=== PATIENT | male | born 1960 | race Caucasian/White ===

== ENCOUNTER 2023-07-31 21:05 | Emergency (ER) | payer MEDICAID ==
[~2023-07-31] VITALS: Ht 172.7 cm; Wt 72.6 kg
[2023-07-31 21:08] VITALS: BP 139/80; PULSE 80; RESP 16; TEMP 98.1; O2SAT 99
[2023-07-31] MEDS ORDERED: NACL 0.9% 1,000 ML IV ONE (22:35)
[2023-07-31 23:17] LABS: BASOPHILS # (AUTO) 0.1 K/uL (0.00-0.22); BASOPHILS % (AUTO) 1.1 % (0.0-2.0); EOSINOPHILS # (AUTO) 0.2 K/uL (0-0.4); EOSINOPHILS % (AUTO) 2.9 % (0.0-4.0); HEMATOCRIT 46.4 % (36-52); HEMOGLOBIN 15.7 g/dL (12.0-18.0); LYMPHOCYTES # (AUTO) 1.6 K/uL (2.0-11.5); LYMPHOCYTES % (AUTO) 29.6 % (20.5-51.1); MEAN CORPUSCULAR HEMOGLOBIN 29 pg (27-31); MEAN CORPUSCULAR HGB CONC 34 g/dL (33-37); MONOCYTES # (AUTO) 0.3 K/uL (0.8-1.0); MONOCYTES % (AUTO) 6.6 % (1.7-9.3); NEUTROPHILS # (AUTO) 3.2 K/uL (1.8-7.7); NEUTROPHILS % (AUTO) 59.8 % (42.2-75.2); PLATELET COUNT (AUTO) 290 K/uL (140-450); RED BLOOD CELL COUNT(AUTO) 5.52 MIL/uL (4.20-6.10); RED CELL DISTRIBUTION WIDTH 16.2 % (11.6-13.7); WHITE BLOOD COUNT (AUTO) 5.3 K/uL (4.8-10.8)
[2023-07-31 23:36] LABS: ANION GAP 16.4 (8-16); CALCIUM 8.9 mg/dL (8.5-10.1); CARBON DIOXIDE 24.1 mmol/L (21-32); CREATININE 0.8 mg/dL (0.6-1.3); POTASSIUM 3.5 mmol/L (3.5-5.1)
[2023-07-31 23:50] LABS: ALBUMIN 3.4 g/dL (3.4-5.0); BILIRUBIN,DIRECT 0.1 mg/dL (0.0-0.3); TOTAL BILIRUBIN 0.2 mg/dL (0.0-1.0); TOTAL PROTEIN, SERUM 8.8 g/dL (6.4-8.2)
[2023-08-01 00:14] LABS: MAGNESIUM 2.1 mg/dL (1.8-2.4)
[2023-08-01 00:51] LABS: AMPHETAMINE, URINE NEGATIVE ng/ml (NEG <=1000); BARBITURATE, URINE NEGATIVE ng/ml (NEG <=200); BENZODIAZEPINE, URINE NEGATIVE ng/mL (NEG <=200); CANNABINOID, URINE POSITIVE ng/mL (NEG <=50); COCAINE, URINE NEGATIVE ng/mL (NEG <=300); OPIATE, URINE NEGATIVE ng/mL (NEG <=2000); PHENCYCLIDINE SCREEN,URINE NEGATIVE ng/mL (NEG <=25)
[2023-08-01] MEDS ORDERED: ATA25 PO (02:01)
[2023-08-01 02:20] VITALS: BP 110/74; PULSE 82; RESP 16; TEMP 98.1; O2SAT 96
== END 2023-08-01 02:20 | disposition home or self-care (01) ==
LOC: MED 21:05
DX: F10.129 Alcohol abuse with intoxication, unspecified (principal); G47.00 Insomnia, unspecified; Z79.899 Other long term (current) drug therapy; Z98.890 Other specified postprocedural states; Y90.8 Blood alcohol level of 240 mg/100 ml or more
CPT/HCPCS: 36415; 70450; 80048; 80076; 80305; 83690; 83735; 85025; 96360; 99284; G0482; J7030

== ENCOUNTER 2024-04-26 02:01 | Emergency (ER) | payer MEDICAID ==
[~2024-04-26] VITALS: Ht 177.8 cm; Wt 72.6 kg
[~2024-04-26 02:01] MED LIST: ATA25 PO
[2024-04-26 02:12] VITALS: BP 131/94; PULSE 86; RESP 16; TEMP 98.2; O2SAT 98
[2024-04-26 02:38] VITALS: O2SAT 98
[2024-04-26 09:40] VITALS: BP 134/70; PULSE 78; RESP 20; TEMP 97.3; O2SAT 100
== END 2024-04-26 09:40 | disposition home or self-care (01) ==
LOC: MED 02:01
DX: F10.129 Alcohol abuse with intoxication, unspecified (principal); R03.0 Elevated blood-pressure reading, without diagnosis of hypertension; E11.9 Type 2 diabetes mellitus without complications; F17.210 Nicotine dependence, cigarettes, uncomplicated; Z79.899 Other long term (current) drug therapy; Y90.9 Presence of alcohol in blood, level not specified
CPT/HCPCS: 82948; 99283